=== PATIENT | female | born 1945 | race Caucasian/White ===

== ENCOUNTER → 2016-10-16 | Outpatient (REF) | payer MEDICARE, MEDICAID ==
[2016-10-16 14:22] LABS: FREE T4 1.14 NG/DL (0.76-1.46)
== END ==
LOC: M LABDRAW1 12:50
PROVIDERS: ATTEND Internal Medicine Endocrinology, Diabetes & Metabolism
DX: E04.2 Nontoxic multinodular goiter (principal)

== ENCOUNTER → 2017-07-10 | Outpatient (CLI) | payer MEDICARE, MEDICAID | LOC: M PLARAD 15:04 | DX: R91.1 Solitary pulmonary nodule (principal) | CPT/HCPCS: 78815 ==

== ENCOUNTER → 2017-08-05 | Outpatient (CLI) | payer MEDICARE, MEDICAID ==
[~2017-08-05] MED LIST: ACETAMINOPHEN 325 MG TAB As Ordered; LIDOCAINE 1% MDV 20ML VIAL As Ordered
== END ==
LOC: M RADPRO 08:12
DX: C34.90 Malignant neoplasm of unspecified part of unspecified bronchus or lung (principal); R91.1 Solitary pulmonary nodule; J93.9 Pneumothorax, unspecified; Z88.5 Allergy status to narcotic agent; Z88.8 Allergy status to other drugs, medicaments and biological substances; Z79.01 Long term (current) use of anticoagulants; Z79.899 Other long term (current) drug therapy
CPT/HCPCS: 32405